=== PATIENT | female | born 1980 | race American Indian/Alaskan Native ===

== ENCOUNTER 2018-08-22 22:30 | Emergency (ER) | payer OTHER, MEDICAID ==
[2018-08-23 00:15] LABS: Bacteria,Urine 1+ /HPF (Negative); Bilirubin,Urine NEG (Negative); Blood,Urine NEG (Negative); Color,Urine Yellow (Yellow); Mucus,Urine FEW /HPF; Protein,Urine <15 mg/dL mg/dL (Negative); WBC,Urine < 1.0 /HPF (0.0-6.0)
[2018-08-23 00:17] LABS: Basophils % (Auto) 0.3 % (0.0-1.8); Eosinophils % (Auto) 0.5 % (0.0-4.3); Hematocrit 32.4 % (30.3-42.9); Hemoglobin 11.1 gm/dl (10.1-14.3); Lymphocytes % (Auto) 29.1 % (13.4-35.0); Mean Corpuscular HGB Conc 34 % (30-34); Mean Corpuscular Volume 95 fl (79-97); Monocytes # (Auto) 0.6 K/mm3 (0.0-0.8); Monocytes % (Auto) 8.3 % (0.0-7.3); Platelet Count 250 K/mm3 (140-440); Red Blood Count 3.42 M/mm3 (3.65-5.03); Red Cell Distribution Width 13.9 % (13.2-15.2)
--- NOTE | 2018-08-23 02:39 | Ultrasound Report ---
FINAL REPORT EXAM: US OB TRANSVAGINAL HISTORY: Cramping and back pain TECHNIQUE: Transvaginal imaging was obtained of the pelvis. FINDINGS: The uterus is anteverted measuring 10.3 cm x 4.9 cm x 5.5 cm. Within the uterus is a sac-like structu re measuring 5.3 mm in diameter. There is no evidence of yolk sac or pole. Estimated sonographi c age of the sac is 5 weeks 2 days. Free fluid is not seen. The right ovary is not identified. The le ft ovary measures 3.8 cm x 2.5 cm x 2.6 cm. Within the left ovary is 1.3 cm functional cyst. IMPRESSION: Intrauterine gestational sac-like structure corresponding to 5 week 2 day . No evidence of f etal pole or embryo at this time. Follow-up studies recommended to confirm viability versus fet al demise 1.3 cm functional cyst in left ovary possibly representing a corpus luteum cyst. No evidence of free fluid or adnexal masses.
--- NOTE | 2018-08-23 02:41 | Ultrasound Report ---
FINAL REPORT EXAM: US OB <= 14 WEEKS FETUS HISTORY: Cramping and back pain TECHNIQUE: Routine transabdominal imaging was obtained of the pelvis. FINDINGS: The uterus is anteverted measuring 10.3 cm x 4.9 cm x 5.5 cm. Within the uterus is a sac-like structu re measuring 5.3 mm in diameter. There is no pole or yolk sac. The gestational sac corresponds to a 5 week 2 day . The right ovary is not seen. The left ovary measures 3.8 cm x 2.5 cm x 2.6 cm. Within the left ovary is a functional cyst measuring 1.3 cm in diameter possibly representing corpus luteum cyst. IMPRESSION: Intrauterine sac-like structure corresponding to a 5 week 2 day . No evidence of yolk sac or pole at this time. Follow-up imaging is recommended to confirm viability versus de mise. 1.3 cm functional cyst left ovary possibly representing a corpus luteum cyst. No evidence of free fluid or adnexal masses.
--- NOTE | 2018-08-23 03:07 | Emergency Department Report ---
ED General Adult HPI - General Chief complaint: Back Pain/Injury Stated complaint: BACK PAIN Time Seen by Provider: 08/23/18 03:06 Source: patient Mode of arrival: Ambulatory Limitations: No Limitations - History of Present Illness Initial comments: Patient is a 38-year-old female who presents with back pain that has been going on for the last 3 days. She states the pain as a 4 out of 10. She states that her last menstrual period was 05/28/2018 risk. At 5 weeks. Patient thinks that she may be again and she wants to get checked out. Patient has no nausea no vomiting no vaginal bleeding or vaginal discharge. No abdominal pain. The pain is located in her lower back doesn't radiate anywhere nothing makes it better and nothing makes it worse. - Related Data Previous Rx's Medication Instructions Recorded Last Taken Type Vit-Fe Fumar-FA [ 1 each PO QDAY #30 tablet 05/29/13 04/10/15 Rx Vitamin] Acetaminophen/Codeine [Tylenol #3] 1 tab PO Q4HR PRN #20 tablet 05/25/14 Unknown Rx Ferrous Sulfate [Feosol 325 MG tab] 325 mg PO BID #60 tablet 05/25/14 Unknown Rx Ibuprofen [Motrin 800 MG tab] 800 mg PO Q6H PRN #30 tablet 05/25/14 Unknown Rx Methylergonovine [Methergine] 0.2 mg PO Q8HR #7 tablet 05/25/14 Unknown Rx Acetaminophen [Tylenol] 650 mg PO QID PRN #30 capsule 07/12/18 Unknown Rx Cephalexin [Keflex] 500 mg PO BID 10 Days #20 capsule 07/12/18 Unknown Rx Allergies Allergy/AdvReac Type Severity Reaction Status Date / Time Latex, Natural Rubber AdvReac Swelling Verified 04/28/15 09:23 ED Review of Systems ROS: Stated complaint: BACK PAIN Other details as noted in HPI Constitutional: denies: chills, fever Eyes: denies: eye pain, eye discharge, vision change ENT: denies: ear pain, throat pain Respiratory: denies: cough, shortness of breath, wheezing Cardiovascular: denies: chest pain, palpitations Endocrine: no symptoms reported Gastrointestinal: denies: abdominal pain, nausea, diarrhea Genitourinary: denies: urgency, dysuria, discharge Musculoskeletal: back pain. denies: joint swelling, arthralgia Skin: denies: rash, lesions Neurological: denies: headache, weakness, paresthesias Psychiatric: denies: anxiety, depression Hematological/Lymphatic: denies: easy bleeding, easy bruising ED Past Medical Hx - Past Medical History Previous Medical History?: Yes Hx Hypertension: Yes (first ) Hx Congestive Heart Failure: No Hx Diabetes: Yes (GDM with last ) Hx Deep Vein Thrombosis: No Hx Renal Disease: No Hx Sickle Cell Disease: No Hx Seizures: No Hx Asthma: No Hx COPD: No Hx HIV: No - Surgical History Past Surgical History?: Yes Additional Surgical History: D&C X 2, cervical dyplasia - Social History Smoking Status: Never Smoker - Medications Home Medications: Home Medications Medication Instructions Recorded Confirmed Last Taken Type Vit-Fe Fumar-FA [ 1 each PO QDAY #30 tablet 05/29/13 04/29/15 04/10/15 Rx Vitamin] Acetaminophen/Codeine [Tylenol #3] 1 tab PO Q4HR PRN #20 tablet 05/25/14 04/30/15 Unknown Rx Ferrous Sulfate [Feosol 325 MG tab] 325 mg PO BID #60 tablet 05/25/14 04/30/15 Unknown Rx Ibuprofen [Motrin 800 MG tab] 800 mg PO Q6H PRN #30 tablet 05/25/14 04/30/15 Unknown Rx Methylergonovine [Methergine] 0.2 mg PO Q8HR #7 tablet 05/25/14 04/30/15 Unknown Rx Acetaminophen [Tylenol] 650 mg PO QID PRN #30 capsule 07/12/18 Unknown Rx Cephalexin [Keflex] 500 mg PO BID 10 Days #20 capsule 07/12/18 Unknown Rx ED Physical Exam - General Limitations: No Limitations General appearance: alert, in no apparent distress - Head Head exam: Present: atraumatic, normocephalic - Eye Eye exam: Present: normal appearance - ENT ENT exam: Present: mucous membranes moist - Neck Neck exam: Present: normal inspection - Respiratory Respiratory exam: Present: normal lung sounds bilaterally. Absent: respiratory distress - Cardiovascular Cardiovascular Exam: Present: regular rate, normal rhythm. Absent: systolic murmur, diastolic murmur, rubs, gallop - GI/Abdominal GI/Abdominal exam: Present: soft, normal bowel sounds - Extremities Exam Extremities exam: Present: normal inspection - Back Exam Back exam: Present: normal inspection - Neurological Exam Neurological exam: Present: alert, oriented X3 - Psychiatric Psychiatric exam: Present: normal affect, normal mood - Skin Skin exam: Present: warm, dry, intact, normal color. Absent: rash ED Course Vital Signs 08/22/18 23:11 Temperature 98.4 F Pulse Rate 98 H Respiratory 20 Rate Blood Pressure 125/90 O2 Sat by Pulse 100 Oximetry ED Medical Decision Making - Lab Data Result diagrams: 08/22/18 00:00 Lab Results 08/22/18 08/22/18 08/22/18 Range/Units 00:00 00:00 23:34 WBC 6.9 (4.5-11.0) K/mm3 RBC 3.42 L (3.65-5.03) M/mm3 Hgb 11.1 (10.1-14.3) gm/dl Hct 32.4 (30.3-42.9) % MCV 95 (79-97) fl MCH 32 (28-32) pg MCHC 34 (30-34) % RDW 13.9 (13.2-15.2) % Plt Count 250 (140-440) K/mm3 Lymph % (Auto) 29.1 (13.4-35.0) % [place] % (Auto) 8.3 H (0.0-7.3) % Eos % (Auto) 0.5 (0.0-4.3) % Baso % (Auto) 0.3 (0.0-1.8) % Lymph # 2.0 (1.2-5.4) K/mm3 [place] # 0.6 (0.0-0.8) K/mm3 Eos # 0.0 (0.0-0.4) K/mm3 Baso # 0.0 (0.0-0.1) K/mm3 Seg Neutrophils % 61.8 (40.0-70.0) % Seg Neutrophils # 4.3 (1.8-7.7) K/mm3 HCG, Quant 2640 H (0-4) mIU/mL Urine Color Yellow (Yellow) Urine Turbidity Clear (Clear) Urine pH 6.0 (5.0-7.0) Ur Specific [place] 1.023 (1.003-1.030) Urine Protein <15 mg/dl (Negative) mg/dL Urine Glucose (UA) Neg (Negative) mg/dL Urine Ketones Neg (Negative) mg/dL Urine Blood Neg (Negative) Urine Nitrite Neg (Negative) Urine Bilirubin Neg (Negative) Urine Urobilinogen 2.0 (<2.0) mg/dL Ur Leukocyte Esterase Neg (Negative) Urine WBC (Auto) < 1.0 (0.0-6.0) /HPF Urine RBC (Auto) 1.0 (0.0-6.0) /HPF U Epithel Cells (Auto) < 1.0 (0-13.0) /HPF Urine Bacteria (Auto) 1+ (Negative) /HPF Urine Mucus Few /HPF - Radiology Data Radiology results: report reviewed, image reviewed Transvaginal ultrasound: Shows single intrauterine at 5 weeks and 2 days pole identified - Medical Decision Making Chief medical diagnosis: Differential medical diagnosis: Lumbosacral strain, UTI I will get CBC, BMP, hCG Quant, UA and I will get a transvaginal ultrasound. Patient has a single intrauterine at 5 weeks and 2 days it is very early on and heart rate isn't detected I will refer patient to follow up with her [employer] SAL[employer]OR in 2 days for repeat hCG. Discussed plan with patient patient agrees with plan additional verbal discharge instructions were given. Critical care attestation.: If time is entered above; I have spent that time in minutes in the direct care of this critically ill patient, excluding procedure time. ED Disposition Clinical Impression: Low back pain Qualifiers: Chronicity: acute Back pain laterality: midline Sciatica presence: without sciatica Qualified Code(s): M54.5 - Low back pain Qualifiers: Weeks of gestation: less than 8 weeks Qualified Code(s): Z3A.01 - Less than 8 weeks gestation of Disposition: DC-01 TO HOME OR SELFCARE Is pt being admited?: No Does the pt Need Aspirin: No Condition: Stable Instructions: Low Back Strain (ED), (ED) Referrals: ELADIO MENG MD [Primary Care Provider] - 3-5 Days ADAMS RAINEY MD [Staff Physician] - 3-5 Days
[2018-08-23] MEDS ORDERED: TYLENOL PO ONE (03:12)
[2018-08-23 04:11] VITALS: BP 136/90
== END 2018-08-23 03:50 | disposition home or self-care (01) ==
LOC: ED 22:30
DX: O26.891 Other specified pregnancy related conditions, first trimester (principal); R10.2 Pelvic and perineal pain; M54.5 Low back pain; Z3A.01 Less than 8 weeks gestation of pregnancy; Z91.040 Latex allergy status; Z91.09 Other allergy status, other than to drugs and biological substances
CPT/HCPCS: 36415; 76801; 76817; 81001; 84702; 85025

== ENCOUNTER 2021-09-03 10:10 | Day surgery (SDC) | payer OTHER, MEDICAID ==
--- NOTE | 2021-09-03 08:32 | History and Physical Report ---
History of Present Illness Date of examination: 08/29/21 History of present illness: Patient has been reassessed/reevaluated. H&P has been reviewed. No interval changes. 41 year old with a recent missed vs possible gestational tropoblastic disease. Patient presents after not following up with missed 4 months ago. Patient denies any vaginal bleeding or cramping since her last visit. Patient has a low postive Bhcg and thicken tisuue in her uterine cavity seen on ultrasound. ] Vital Signs: Patient Profile: 41 Years Old Female LMP: 08/27/2021 Height: 65.5 inches (166.37 cm) Weight: 252 pounds BMI: 41.29 Temp: 97.6 degrees F BP sittin / 80 (left arm) Past History : 10 Term Births: 5 Premature Births: 0 Living Children: 5 Para: 5 Prev : 0 Aborta: 5 Elect. Ab: 0 Spont. Ab: 5 Ectopics: 0 # 1 Delivery date: 2001 Weeks Gestation: 38 Delivery type: Anesthesia type: none Delivery location: [facility] Infant Sex: Male weight: 5-1 Comments: pre eclampsia # 2 Delivery date: 2003 Weeks Gestation: 40 Delivery type: Anesthesia type: epidural Delivery location: [facility] Infant Sex: Male weight: 7-6 Comments: no complications # 3 Delivery date: 2004 Weeks Gestation: 40 Delivery type: Anesthesia type: none Delivery location: [facility] Infant Sex: Female weight: 7-5 Comments: no complications # 4 Delivery date: 2012 Weeks Gestation: 38 Delivery type: Anesthesia type: none Delivery location: [facility] Infant Sex: Male weight: 5-5 Comments: no complication # 5 Delivery date: 2011 Weeks Gestation: 7 Delivery type: SAB Comments: D&C # 6 Delivery date: 05/25/2014 Weeks Gestation: 10 Delivery type: SAB Comments: D&C done # 7 Delivery date: 04/29/2015 Weeks Gestation: 40 Delivery type: Vaginal Anesthesia type: IV medication Delivery location: [facility] Sex: female weight: 6.88 Comments: GDM # 8 Delivery date: 09/2018 Delivery type: SAB Comments: No D&C # 9 Delivery date: 08/2020 Delivery type: SAB Comments: No D&C # 10 Delivery date: 05/04/2021 Delivery type: SAB Comments: No D&C Current Allergies (reviewed today): * LATEX (Mild) Past Medical History: Hypertension Past Surgical History: Leep D&C: (2011) D&C: (2013) Family History Summary: Mother - Has Family History of Hypertension - Entered On: 04/05/2021 Father - Has Family History of Hypertension - Entered On: 04/05/2021 General Comments - FH: mother-htn, thyroid dz Social History: no e/t/d single Smoking History: Patient has never smoked. 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 of genital herpes: no Partner hx. of genital herpes: no Hx of STD: chlamydia Review of Systems General Denies fever, chills, sweats, anorexia, fatigue, weakness, malaise, weight loss and sleep disorder. Complains of amenorrhea. Denies vaginal discharge, incontinence, dysuria, hematuria, urinary frequency, menorrhagia, abnormal vaginal bleeding, pelvic pain, genital sores, decreased libido, painful periods, painful sex, urinary urgency, hot flashes, vaginal dryness, vaginal itching and vaginal odor. CV Denies chest pains, palpitations, syncope, dyspnea on exertion, orthopnea, PND and peripheral edema. Resp Denies cough, dyspnea at rest, excessive sputum, hemoptysis, wheezing and pleurisy. GI Denies nausea, vomiting, diarrhea, constipation, change in bowel habits, abdominal pain, melena, hematochezia, jaundice, gas/bloating, indigestion/heartburn, dysphagia and odynophagia. Breast Denies left breast lump, right breast lump, nipple discharge, bloody discharge from nipple, breast pain, abnormal mammogram and breast enlargement. Psych Denies depression, anxiety, irritability and mood swings. Past History Past Medical History: hypertension, other (SEE HPI) Past Surgical History: Other (SEE HPI) Social history: full code, other (SEE HPI) Family history: other (SEE HPI) Medications and Allergies Allergies Allergy/AdvReac Type Severity Reaction Status Date / Time Latex, Natural Rubber AdvReac Swelling Verified 08/30/21 16:03 Home Medications Medication Instructions Recorded Confirmed Last Taken Type amLODIPine [Norvasc] 10 mg PO DAILY 08/30/21 08/30/21 Unknown History hydroCHLOROthiazide [HCTZ] 25 mg PO QDAY 08/30/21 08/30/21 Unknown History Review of Systems Constitutional: other (SEE HPI) Exam - Physical Exam Narrative exam: HEENT: normocephalic, no lesions or deformities Skin no abnormal lesions or rashes Chest: respiratory effort normal, clear to auscultation CV: regular, normal S1-S2, no murmur, no rub, no gallop Abdomen: Obese, normal bowel sounds, soft, nontender, no HSM Neuro: no gross anomalities Extremities: no discoloration or edema [employer]ACH Exams Vulva/Vagina: normal appearance, no discharge, lesions. No evidence of cystocel e or rectocele. Cervix: normal appearance, no lesions, no discharge Uterus: unable to palpate due to obesity Adnexae: unable to palpate due to obesity Rectovaginal: exam defered Results - Labs CBC & Chem 7: 09/03/21 10:50 Assessment and Plan - Patient Problems (1) Missed Current Visit: No Status: Acute Plan to address problem: Diagnosis explained to patient . Questions answered Patient gives no history of passing of previous SAB 4 months ago. Indications for and description of the procedure given and need to rule out a gestational tropoblastic disease. Patient agrees to proceed with dialation and curretage Discussed risk of surgery including infection, bleeding and risk of perforating her uterus. Questions answered. Patient understands and desires to proceed (2) Hypertension Current Visit: No Status: Acute Qualifiers: Hypertension type: primary hypertension Qualified Code(s): I10 - Essential (primary) hypertension (3) BMI 40.0-44.9, adult Current Visit: No Status: Acute Plan to address problem: Patient has been advised that obesity does increase risks of surgical and risks of post operative complications
[2021-09-03] MEDS ORDERED: LACTATED RINGERS 1,000 ML ONE (10:53)
[2021-09-03] MEDS ORDERED: HYDROcodone/ACETAMINOPHEN 5-325 MG TAB PO PRN (11:10)
[2021-09-03] MEDS ORDERED: ONDANSETRON 4 MG/2 ML INJ IV PRN (11:10)
[2021-09-03] MEDS ORDERED: HYDROmorphone 1 MG/1 ML INJ IV PRN (11:10)
--- NOTE | 2021-09-03 11:10 | Anesthesia Consultation ---
Anesthesia Consult and Med Hx Date of service: 09/03/21 - Airway Anesthetic Teeth Evaluation: Good ROM Head & Neck: Adequate Mental/Hyoid Distance: Adequate Mallampati Class: Class II Intubation Access Assessment: Probably Good - Pre-Operative Health Status ASA Pre-Surgery Classification: ASA3 Proposed Anesthetic Plan: General - Pulmonary Hx Smoking: Yes (former smoker) Hx Respiratory Symptoms: No - Cardiovascular System Hx Hypertension: Yes (took amlodipine this morning) Hx Heart Attack/AMI: No - Central Nervous System CVA: No - Endocrine Hx Renal Disease: No Hx Liver Disease: No Hx Insulin Dependent Diabetes: No Hx Non-Insulin Dependent Diabetes: No Hx Thyroid Disease: No - Other Systems Hx Obesity: Yes (BMI 41) - Additional Comments Anesthesia Medical History Comments: No hx anesthetic complications. Missed scheduled for D&C. Patient believes she was 7wks gestation.
--- NOTE | 2021-09-03 11:10 | Anesthesia Day of Surgery ---
Anesthesia Day of Surgery - Day of Surgery Patient Examined: Yes Patient H&P Reviewed: Yes Patient is NPO: Yes
[2021-09-03] MEDS ORDERED: LIDOCAINE MPF (2%) 20 MG/1 ML VIAL 5 ML ONE (11:33)
[2021-09-03] MEDS ORDERED: MIDAZOLAM 2 MG/2 ML INJ ONE (11:34)
[2021-09-03] MEDS ORDERED: propofoL 200 MG/20 ML VIAL IV ONE ×2 (11:34→11:59)
[2021-09-03] MEDS ORDERED: fentaNYL 100 MCG/2 ML INJ ONE (11:34)
[2021-09-03] MEDS ORDERED: METHYLERGONOVINE MALEATE 0.2 MG/ML VIAL IM ONE ×2 (11:40→12:20)
[2021-09-03] MEDS ORDERED: SILVER NITRATE APPLICATOR 1 EA TP ONE (11:40)
[2021-09-03] MEDS ORDERED: SUCCINYLCHOLINE CHLORIDE 200 MG/10 ML INJ MDV ONE (11:59)
[2021-09-03] MEDS ORDERED: SCOPOLAMINE TRANSDERMAL PATCH 72 HR TD NR (12:00)
[2021-09-03] MEDS ORDERED: MIDAZOLAM 2 MG/2 ML INJ IV NR (12:00)
[2021-09-03] MEDS ORDERED: LACTATED RINGERS 1,000 ML IV SCH (12:00)
[2021-09-03] MEDS ORDERED: SODIUM CHLORIDE 0.9% IRR 1,500 ML BOTTLE IR ONE (12:42)
--- NOTE | 2021-09-03 12:50 | Operative Report ---
Operative Report Operative Report: Date of procedure: Pre-operative diagnosis: Missed Post-operative diagnosis: Same Procedure name(s): Suction dilatation and curettage Surgeon: Asif Reynolds MD Test Baker: [] Anesthesia: General EBL: 50 mL Complications: None Findings: A large amount of tissue consistent with products of conception Specimen(s): Uterine contents Procedure: The patient was brought operating room where general anesthesia was induced without difficulty. Patient was placed in dorsal lithotomy position prepped and draped in the usual sterile manner. Surgery timeout was done. Latex free Melendez catheter was used to empty her bladder. Speculum placed in the vagina. Tenaculum was placed at 12:00. The cervix was dilated progressively with Hegar dilators. A 10 mm suction catheter was placed through the cervical os. Several passes of the suction catheter removed the uterine contents. A gentle curettage was done with a banjo curettte, until a gritty sensation was felt throughout the uterine cavity. Further suction with the suction curettage revealed no further products. All instruments were removed patient was hemostatic. She was awakened in the operating room and accompanied to recovery room in good condition.
--- NOTE | 2021-09-03 12:54 | Short Stay Summary ---
Short Stay Documentation Date of service: 09/03/21 - History H&P: dictated Past Medical History: hypertension, other (SEE HPI) Past Surgical History: Other (SEE HPI) Social history: full code, other (SEE HPI) - Allergies and Medications Current Medications: Allergies Latex, Natural Rubber Adverse Reaction (Verified 08/30/21 16:03) Swelling Home Medications Medication Instructions Recorded Confirmed Last Taken Type amLODIPine [Norvasc] 10 mg PO DAILY 08/30/21 08/30/21 Unknown History hydroCHLOROthiazide [HCTZ] 25 mg PO QDAY 08/30/21 08/30/21 Unknown History DOXYCYCLINE Hyclate [Vibramycin 100 mg PO Q12HR #14 capsule 09/03/21 Unknown Rx CAP] Ibuprofen [Motrin] 800 mg PO TID PRN #30 tablet 09/03/21 Unknown Rx Active Medications Hydrocodone Bitart/Acetaminophen (Hydrocodone/Acetaminophen 5-325 Mg Tab) 2 each PO ONCE PRN PRN Reason: Pain, Moderate (4-6) Stop: 09/03/21 15:00 Hydromorphone HCl (Hydromorphone 1 Mg/1 Ml Inj) 0.5 mg IV Q10MIN PRN PRN Reason: Pain , Severe (7-10) Stop: 09/03/21 20:00 Lactated Ringer's (Lactated Ringers) 1,000 mls @ 100 mls/hr IV DIRECT JCARLOS Last Admin: 09/03/21 10:58 Dose: 100 mls/hr Midazolam HCl (Midazolam 2 Mg/2 Ml Inj) 2 mg IV PREOP NR Stop: 09/03/21 23:59 Ondansetron HCl (Ondansetron 4 Mg/2 Ml Inj) 4 mg IV ONCE PRN PRN Reason: Nausea And Vomiting Stop: 09/03/21 20:00 Scopolamine (Scopolamine Transdermal Patch 72 Hr) 1 each TD PREOP NR Stop: 09/03/21 20:00 - Physical exam General appearance: no acute distress Integumentary: no rash HEENT: Atraumatic Lungs: Normal air movement Breasts: deferred Heart: Regular rate Gastrointestinal: normal, obese Female Genitourinary: normal Rectal Exam: deferred Extremities: no ischemia - Brief post op/procedure progress note Date of procedure: 09/03/21 (See operative note for details) Condition: stable - Hospital course Hospital course: Patient was admitted underwent the above him procedure without any complications. Patient will be discharged with follow-up in office in 1-2 weeks for postop check. - Disposition Condition at discharge: Good Disposition: 01 HOME / SELF CARE / HOMELESS - Discharge Diagnoses (1) Missed Status: Acute (2) Hypertension Status: Chronic Qualifiers: Hypertension type: primary hypertension Qualified Code(s): I10 - Essential (primary) hypertension (3) BMI 40.0-44.9, adult Status: Chronic Short Stay Discharge Plan Activity: advance as tolerated Diet: regular Additional Instructions: Patient to call office for any fever, chills, nausea, vomiting or pain not controlled by pain medication. Follow up with: ELADIO MENG MD [Primary Care Provider] - 7 Days Prescriptions: Ibuprofen [Motrin] 800 mg PO TID PRN #30 tablet PRN Reason: Pain DOXYCYCLINE Hyclate [Vibramycin CAP] 100 mg PO Q12HR #14 capsule
--- NOTE | 2021-09-03 15:55 | Post Anesthesia Evaluation ---
- Post Anesthesia Evaluation Patient Participated: Yes Airway Patent: Yes Stable Respiratory Function: Yes Nausea/Vomiting: No Temp > 96.8F: Yes Pain Manageable: Yes Adequeate Hydration: Yes Anesthesia Complications: No
[2021-09-03 16:27] VITALS: BP 140/75
== END 2021-09-03 15:20 | disposition home or self-care (01) ==
LOC: OR 10:10
PROVIDERS: ATTEND Obstetrics & Gynecology
DX: O02.1 Missed abortion (principal); I10 Essential (primary) hypertension; E66.9 Obesity, unspecified; Z98.890 Other specified postprocedural states; Z83.3 Family history of diabetes mellitus; Z79.899 Other long term (current) drug therapy; Z91.040 Latex allergy status; Z72.89 Other problems related to lifestyle; Z82.49 Family history of ischemic heart disease and other diseases of the circulatory system
CPT/HCPCS: 36415; 59820; 82962; 84132; 86850; 86900; 86901; 88305; J0330; J2210; J2250; J2704; J3010; J3490; J7120